=== PATIENT | female | born 1970 | race Caucasian/White ===

== ENCOUNTER 2016-05-07 10:01 | Outpatient (CLI) | payer OTHER ==
[~2016-05-07] VITALS: Ht 165.1 cm; Wt 139.5 kg
[~2016-05-07 10:01] MED LIST: CHOL400T10 PO
[2016-05-07 10:12] VITALS: BP 147/68; PULSE 88; RESP 18; Ht 165.1 cm; Wt 139.5 kg
--- NOTE | 2016-05-07 17:18 | PN ---
Date/Time of Note Date/Time of Note DATE: 05/07/16 TIME: 17:07 Assessment/Plan Assessment/Plan Assessment/Plan [facility] Progress Note Date of Service: 05/07/16 Today's Impression & Plan: Overall doing well post op without major issues. Wound healing very well. Had a chance to discuss margin status and further management with [facility] and recommendation was for BRCA testing along with genetic counselling followed by re-resection to achieve negative margins if BRCA negative/low genetic risk vs. unilateral or bilateral mastectomy with reconstruction if BRCA is positive or high risk genetic profile. Important that BRCA testing and genetic counseling get done as soon as possible since this is a time sensitive issue. Explained to patient and answered all her questions. With above assessment, I've recommended the following for today: 1. BRCA testing with genetic counselling, to be done in the next 1-2 weeks 2. F/u with us after above Thank you again for your great care of this very pleasant patient and wonderful family. If there are any questions, please feel free to call me at [phone]. TOTAL VISIT TIME: 20 minutes of which more than half was spent in [id number] discussion with the patient, possibly including family, as well as coordination of care between multiple physicians and providers. Disclaimer: Inadvertent spelling or grammatical errors are likely due to EHR/ dictation software use and do not reflect on the overall quality of patient care. Updated Clinical Summary: The patient is a very pleasant 46-year-old lady with comorbid issues including BMI of 51.4, left knee pain, and a few surgical procedures including Bartholin cyst in 2008, umbilical hernia repair in 2006 and tubal ligation in 2006, who was found to have an area in her right breast at 5 or 6 o'clock position in the posterior right breast with calcifications which on image CT-guided needle biopsy unfortunately has come back as ductal carcinoma in situ. The patient also had an MRI of the breast on 02/14/2016 where an area of non-mass enhancement at 5:30 to 6:00 o'clock position of the right breast which corresponded to the biopsy area without enhancing mass or abnormal enhancement in the left breast and no evidence of axillary or internal mammary lymphadenopathy. Given that the patient's preoperative staging is that of stage 0 or Tis N0 M0, according to NCCN guidelines, she could benefit from lumpectomy without lymph nodes surgery plus whole breast radiation therapy. As discussed by her oncologist, the patient can also benefit from risk reduction therapy with consideration for endocrine therapy for 5 years since the patient's tumor appears to be a hormone receptor positive. S/p right breast lumpectomy with assistance of wire localization on 03/18/16 with final path: Breast, right, lumpectomy: -- Ductal carcinoma in situ, solid, with comedonecrosis, high nuclear grade. -- The DCIS involves the anterior resection margin. -- The remaining resection margins are more than 1.0 cm clear. -- No invasive carcinoma is identified. SURGICAL PATHOLOGY CANCER CASE SUMMARY: PROCEDURE: Excision with wire-guided localization. SPECIMEN LATERALITY: Right. TUMOR SITE: Not specified. SIZE OF DCIS: 1.8 x 1.3 x 1.0 cm. Number of blocks with DCIS: 6. Number of blocks examined: 29. HISTOLOGIC TYPE: Ductal carcinoma in situ. Architectural pattern: Solid. Nuclear grade: Grade 3. Necrosis: Present, central. MARGINS: DCIS: The anterior margin is positive for DCIS with an extent of 5.0 mm. The remaining resection margins are more than 1.0 cm clear. PATHOLOGIC STAGING (pTNM): pTis. PROGNOSTIC MARKERS: Performed in the previous biopsy by [facility] ( [id number]; 12/04/2015). -- ER: Positive, strong, greater than 90%. -- RI: Positive, strong, 90%. Comorbidity/PMHx List: 1. Right breast calcification area consistent with DCIS after image-guided needle biopsy 2. BMI of 51.4. 3. Left knee pain. 4. Significant weight gain since after her children in 1995. 5. Bartholin's cyst in the vaginal labia 2008. 6. Umbilical hernia repair 2006. 7. Tubal ligation in 2006. Subjective: No major events or complaints; no major pain; no n/v/d; no sob or cp; + flatus; + BM and normal; + activity Objective: Vitals: See below Exam: GENERAL: On exam, the patient was sitting in a chair and appeared to be comfortable and in no acute distress. RIGHT BREAST: Incision is clean, dry and intact without any evidence of erythema , edema, discharge, or hernia. ABDOMEN: Soft, nontender and nondistended. There are no peritoneal signs or guarding. SKIN: Skin appears to be pink and feels warm to touch. NEUROLOGIC: Patient is awake, alert, and follows commands appropriately. Exam/Review of Systems Vital Signs Vitals Vital Signs Date Time Temp Pulse Resp B/P Pulse Ox O2 Delivery O2 Flow Rate FiO2 05/07/16 10:12 97.7 88 18 147/68 96 Room Air LUCY BOOKER M.D. May 07, 2016 17:18
== END 2016-05-07 16:44 | disposition home or self-care (01) ==
LOC: HPC 10:01
PROVIDERS: ATTEND Transplant Surgery
DX: D05.90 Unspecified type of carcinoma in situ of unspecified breast (principal); O00.10 Tubal pregnancy without intrauterine pregnancy; R59.1 Generalized enlarged lymph nodes
CPT/HCPCS: G0463

== ENCOUNTER 2016-06-25 14:37 | Outpatient (CLI) | payer OTHER ==
[~2016-06-25] VITALS: Ht 165.1 cm; Wt 144.1 kg
[2016-06-25 14:52] VITALS: Ht 165.1 cm; Wt 144.1 kg
[2016-06-25 14:53] VITALS: BP 142/78; PULSE 91; RESP 18
--- NOTE | 2016-06-25 16:33 | PN ---
Date/Time of Note Date/Time of Note DATE: 06/25/16 TIME: 16:15 Assessment/Plan Assessment/Plan Assessment/Plan [facility] Progress Note Date of Service: 06/25/16 Today's Impression & Plan: Overall doing well post op without major issues. BRCA testing done and wild- type (negative for mutation); discussed implications; recommended re-resection to achieve negative margins +/- plastics involvement in conjunction with whole breast radiation therapy and hormonal therapy post op; counseled patient against bilateral mastectomy, but will ask our plastics colleagues to also comment and willing to consider altering the plans if cosmetic results would be better with mastectomy due to breast size issues. Explained to patient and answered all her questions. With above assessment, I've recommended the following for today: 1. Schedule patient for re-resection of area of previous right breast lumpectomy 2. Plastic surgery consultation 3. Post operative whole breast radiation therapy as well as hormonal therapy Thank you again for your great care of this very pleasant patient and wonderful family. If there are any questions, please feel free to call me at [phone]. TOTAL VISIT TIME: 20 minutes of which more than half was spent in [id number] discussion with the patient, possibly including family, as well as coordination of care between multiple physicians and providers. Disclaimer: Inadvertent spelling or grammatical errors are likely due to EHR/ dictation software use and do not reflect on the overall quality of patient care. Updated Clinical Summary: The patient is a very pleasant 46-year-old lady with comorbid issues including BMI of 51.4, left knee pain, and a few surgical procedures including Bartholin cyst in 2008, umbilical hernia repair in 2006 and tubal ligation in 2006, who was found to have an area in her right breast at 5 or 6 o'clock position in the posterior right breast with calcifications which on image CT-guided needle biopsy unfortunately has come back as ductal carcinoma in situ. The patient also had an MRI of the breast on 02/14/2016 where an area of non-mass enhancement at 5:30 to 6:00 o'clock position of the right breast which corresponded to the biopsy area without enhancing mass or abnormal enhancement in the left breast and no evidence of axillary or internal mammary lymphadenopathy. Given that the patient's preoperative staging is that of stage 0 or Tis N0 M0, according to NCCN guidelines, she could benefit from lumpectomy without lymph nodes surgery plus whole breast radiation therapy. As discussed by her oncologist, the patient can also benefit from risk reduction therapy with consideration for endocrine therapy for 5 years since the patient's tumor appears to be a hormone receptor positive. S/p right breast lumpectomy with assistance of wire localization on 03/18/16 with final path: Breast, right, lumpectomy: -- Ductal carcinoma in situ, solid, with comedonecrosis, high nuclear grade. -- The DCIS involves the anterior resection margin. -- The remaining resection margins are more than 1.0 cm clear. -- No invasive carcinoma is identified. SURGICAL PATHOLOGY CANCER CASE SUMMARY: PROCEDURE: Excision with wire-guided localization. SPECIMEN LATERALITY: Right. TUMOR SITE: Not specified. SIZE OF DCIS: 1.8 x 1.3 x 1.0 cm. Number of blocks with DCIS: 6. Number of blocks examined: 29. HISTOLOGIC TYPE: Ductal carcinoma in situ. Architectural pattern: Solid. Nuclear grade: Grade 3. Necrosis: Present, central. MARGINS: DCIS: The anterior margin is positive for DCIS with an extent of 5.0 mm. The remaining resection margins are more than 1.0 cm clear. PATHOLOGIC STAGING (pTNM): pTis. PROGNOSTIC MARKERS: Performed in the previous biopsy by [facility] ( [id number]; 12/04/2015). -- ER: Positive, strong, greater than 90%. -- IA: Positive, strong, 90%. Comorbidity/PMHx List: 1. Right breast calcification area consistent with DCIS after image-guided needle biopsy 2. BMI of 51.4. 3. Left knee pain. 4. Significant weight gain since after her children in 1995. 5. Bartholin's cyst in the vaginal labia 2008. 6. Umbilical hernia repair 2006. 7. Tubal ligation in 2006. Subjective: No major events or complaints; no major pain; no n/v/d; no sob or cp; + flatus; + BM and normal; + activity Objective: Vitals: See below Exam: GENERAL: On exam, the patient was sitting in a chair and appeared to be comfortable and in no acute distress. RIGHT BREAST: Incision is clean, dry and intact without any evidence of erythema , edema, discharge, or hernia. ABDOMEN: Soft, nontender and nondistended. There are no peritoneal signs or guarding. SKIN: Skin appears to be pink and feels warm to touch. NEUROLOGIC: Patient is awake, alert, and follows commands appropriately. Exam/Review of Systems Vital Signs Vitals Vital Signs Date Time Temp Pulse Resp B/P Pulse Ox O2 Delivery O2 Flow Rate FiO2 06/25/16 14:53 98.1 91 18 142/78 96 Room Air LUCY BOOKER M.D. Jun 25, 2016 16:32
== END 2016-06-25 16:27 | disposition home or self-care (01) ==
LOC: HPC 14:37
PROVIDERS: ATTEND Transplant Surgery
DX: C50.911 Malignant neoplasm of unspecified site of right female breast (principal); M25.562 Pain in left knee
CPT/HCPCS: G0463

== ENCOUNTER 2016-07-28 15:39 | Outpatient (CLI) | payer OTHER ==
[~2016-07-28] VITALS: Ht 165.1 cm; Wt 146.4 kg
[2016-07-28 15:41] VITALS: BP 136/64; PULSE 88; RESP 18; Ht 165.1 cm; Wt 146.4 kg
--- NOTE | 2016-07-28 16:20 | PN ---
Date/Time of Note Date/Time of Note DATE: 07/28/16 TIME: 16:09 Assessment/Plan Assessment/Plan Assessment/Plan [facility] Progress Note Date of Service: 06/27/16 Today's Impression & Plan: Stable. Saw Dr. Sequeira (much appreciate input and care) and discussed upcoming re-resection to achieve negative margins with reconstruction in conjunction with whole breast radiation therapy and hormonal therapy post op. Explained to patient and answered all her questions. With above assessment, I've recommended the following for today: 1. On schedule for re-resection of area of previous right breast lumpectomy with reconstruction 2. Post operative whole breast radiation therapy as well as hormonal therapy Thank you again for your great care of this very pleasant patient and wonderful family. If there are any questions, please feel free to call me at [phone]. TOTAL VISIT TIME: 20 minutes of which more than half was spent in [id number] discussion with the patient, possibly including family, as well as coordination of care between multiple physicians and providers. Disclaimer: Inadvertent spelling or grammatical errors are likely due to EHR/ dictation software use and do not reflect on the overall quality of patient care. Updated Clinical Summary: The patient is a very pleasant 46-year-old lady with comorbid issues including BMI of 51.4, left knee pain, and a few surgical procedures including Bartholin cyst in 2008, umbilical hernia repair in 2006 and tubal ligation in 2006, who was found to have an area in her right breast at 5 or 6 o'clock position in the posterior right breast with calcifications which on image CT-guided needle biopsy unfortunately has come back as ductal carcinoma in situ. The patient also had an MRI of the breast on 02/14/2016 where an area of non-mass enhancement at 5:30 to 6:00 o'clock position of the right breast which corresponded to the biopsy area without enhancing mass or abnormal enhancement in the left breast and no evidence of axillary or internal mammary lymphadenopathy. Given that the patient's preoperative staging is that of stage 0 or Tis N0 M0, according to NCCN guidelines, she could benefit from lumpectomy without lymph nodes surgery plus whole breast radiation therapy. As discussed by her oncologist, the patient can also benefit from risk reduction therapy with consideration for endocrine therapy for 5 years since the patient's tumor appears to be a hormone receptor positive. S/p right breast lumpectomy with assistance of wire localization on 03/18/16 with final path: Breast, right, lumpectomy: -- Ductal carcinoma in situ, solid, with comedonecrosis, high nuclear grade. -- The DCIS involves the anterior resection margin. -- The remaining resection margins are more than 1.0 cm clear. -- No invasive carcinoma is identified. SURGICAL PATHOLOGY CANCER CASE SUMMARY: PROCEDURE: Excision with wire-guided localization. SPECIMEN LATERALITY: Right. TUMOR SITE: Not specified. SIZE OF DCIS: 1.8 x 1.3 x 1.0 cm. Number of blocks with DCIS: 6. Number of blocks examined: 29. HISTOLOGIC TYPE: Ductal carcinoma in situ. Architectural pattern: Solid. Nuclear grade: Grade 3. Necrosis: Present, central. MARGINS: DCIS: The anterior margin is positive for DCIS with an extent of 5.0 mm. The remaining resection margins are more than 1.0 cm clear. PATHOLOGIC STAGING (pTNM): pTis. PROGNOSTIC MARKERS: Performed in the previous biopsy by [facility] ( [id number]; 12/04/2015). -- ER: Positive, strong, greater than 90%. -- NC: Positive, strong, 90%. Comorbidity/PMHx List: 1. Right breast calcification area consistent with DCIS after image-guided needle biopsy 2. BMI of 51.4. 3. Left knee pain. 4. Significant weight gain since after her children in 1995. 5. Bartholin's cyst in the vaginal labia 2008. 6. Umbilical hernia repair 2006. 7. Tubal ligation in 2006. Subjective: No major events or complaints; no major pain; no n/v/d; no sob or cp; + flatus; + BM and normal; + activity Objective: Vitals: See below Exam: GENERAL: On exam, the patient was sitting in a chair and appeared to be comfortable and in no acute distress. RIGHT BREAST: Incision is clean, dry and intact without any evidence of erythema , edema, discharge, or hernia. ABDOMEN: Soft, nontender and nondistended. There are no peritoneal signs or guarding. SKIN: Skin appears to be pink and feels warm to touch. NEUROLOGIC: Patient is awake, alert, and follows commands appropriately. Exam/Review of Systems Vital Signs Vitals Vital Signs Date Time Temp Pulse Resp B/P Pulse Ox O2 Delivery O2 Flow Rate FiO2 07/28/16 15:41 98.1 88 18 136/64 96 Room Air LUCY BOOKER M.D. Jul 28, 2016 16:20
== END 2016-07-28 17:10 | disposition home or self-care (01) ==
LOC: HPC 15:39
PROVIDERS: ATTEND Transplant Surgery
DX: D05.11 Intraductal carcinoma in situ of right breast (principal); M25.562 Pain in left knee
CPT/HCPCS: G0463

== ENCOUNTER 2016-08-12 10:00 | Day surgery (SDC) | payer OTHER ==
[2016-08-12] VITALS (10 sets, daily range): BP systolic 111–142; BP diastolic 60–86; PULSE 80–95; RESP 12–18; Ht 165.1 cm; Wt 143.0 kg
[~2016-08-12] VITALS: Ht 165.1 cm; Wt 143.0 kg
[~2016-08-12 10:00] MED LIST changes: +CEFAZOLIN 1 GM INJ ONE; +CEFAZOLIN 2 GM/50 ML (PMX) 50 ML IVPB SCH; +D5W-0.45 NACL + KCL 20 MEQ 1,000 ML IV SCH; +SUCCINYLCHOLINE CHLORIDE 100 MG/5 ML SYG IV ONE
[2016-08-12] MEDS ORDERED: LIDOCAINE 2% (SDV) 5 ML INJ ONE (10:43)
[2016-08-12] MEDS ORDERED: ROCURONIUM 50 MG INJ ONE (10:43)
[2016-08-12] MEDS ORDERED: NEOSTIGMINE 3 MG/3 ML SYRINGE ONE (10:43)
[2016-08-12] MEDS ORDERED: PROPOFOL 20 ML ONE (10:43)
[2016-08-12] MEDS ORDERED: GLYCOPYRROLATE 0.4 MG INJ ONE (10:43)
[2016-08-12] MEDS ORDERED: MIDAZOLAM 1 MG/ML 2 ML INJ ONE (10:44)
[2016-08-12] MEDS ORDERED: FENTAnyl 50 MCG/ML VIAL ONE (10:45)
[2016-08-12] MEDS ORDERED: DEXAMETHASONE 4 MG/ML 1 ML INJ ONE (11:00)
[2016-08-12] MEDS ORDERED: ONDANSETRON 4 MG INJ ONE (11:00)
[2016-08-12] MEDS ORDERED: LABETALOL HCL 20MG INJ ONE (11:17)
--- NOTE | 2016-08-12 12:02 | HPN ---
Date/Time of Note Date/Time of Note DATE: 08/12/16 TIME: 12:02 Interval H&P Admission Note Pt. seen H&P reviewed: No system changes Pt. seen H&P reviewed. No system changes (I attest that I have seen and examined the patient and reviewed the operation in detail, as well as its risks , benefits and alternatives of the operation). I attest that I have seen and examined the patient and reviewed in detail the operation, and its associated risks, benefits and alternative. I have answered all the patient's questions to the best of my ability and the patient wishes to proceed. Please refer to rest of electronic medical record for additional updates. LUCY BOOKER M.D. Aug 12, 2016 12:02
[2016-08-12] MEDS ORDERED: EPINEPHrine 1 MG/ML 30 ML INJ ONE (12:17)
[2016-08-12] MEDS ORDERED: BUPIVACAINE 0.25%/EPI (SDV) 30 ML INJ ONE (12:17)
--- NOTE | 2016-08-12 12:20 | HPN ---
Date/Time of Note Date/Time of Note DATE: 08/12/16 TIME: 12:20 Interval H&P Admission Note Pt. seen H&P reviewed: No system changes HERIBERTO ESPINOSA MD Aug 12, 2016 12:20
[2016-08-12] MEDS ORDERED: morphine 2 MG INJ IV PRN (12:30)
[2016-08-12] MEDS ORDERED: BUPIVACAINE LIPOSOME/PF 266 MG/20 ML VIAL INFIL SCH (12:30)
[2016-08-12] MEDS ORDERED: HYDROCODONE/APAP (5/325) TAB PO PRN (12:30)
[2016-08-12] MEDS ORDERED: ONDANSETRON 4 MG INJ IV PRN (12:30)
[2016-08-12] MEDS ORDERED: OXYCODONE/ACETAMINOPHEN (5/325) TAB PO PRN (12:30)
[2016-08-12] MEDS ORDERED: hydrALAzine 20 MG INJ ONE (13:13)
--- NOTE | 2016-08-12 14:02 | OPR ---
Date/Time of Note Date/Time of Note DATE: 08/12/16 TIME: 13:46 Operative Report Operative\Procedure Findings [facility] INPATIENT OPERATIVE NOTE PLACE OF SERVICE: [facility] DATE OF SURGERY: 08/13/2015 PREOPERATIVE DIAGNOSIS: 1. Right breast calcification area consistent with DCIS after image-guided needle biopsy. S/p right breast lumpectomy with assistance of wire localization 03/18/16. Positive anterior margins on final pathology. 2. BMI of 51.4. 3. Left knee pain. 4. Significant weight gain since after her children in 1995. 5. Bartholin's cyst in the vaginal labia 2008. 6. Umbilical hernia repair 2006. 7. Tubal ligation in 2006. POSTOPERATIVE DIAGNOSIS: 1. Right breast calcification area consistent with DCIS after image-guided needle biopsy. S/p right breast lumpectomy with assistance of wire localization 03/18/16. Positive anterior margins on final pathology. 2. BMI of 51.4. 3. Left knee pain. 4. Significant weight gain since after her children in 1995. 5. Bartholin's cyst in the vaginal labia 2008. 6. Umbilical hernia repair 2006. 7. Tubal ligation in 2006. OPERATION: 1. Right breast re-resection of previous lumpectomy site (partial mastectomy) with removal of 23 x 9 cm block of tissue onto the anterior fascia. SURGEON: Lucy Rose M.D. TRAFFIC II MANAGER: Madhavi Sequeira MD ANESTHESIA: General endotracheal tube anesthesia ANESTHESIOLOGIST: Livan Lanier M.D. BRIEF SUMMARY: An otherwise uncomplicated right breast re-resection of previous lumpectomy site (partial mastectomy) with removal of 23x9 cm block of tissue onto the anterior fascia was performed along with removal of extra tissue from anterior fascia (most posterior aspect of previous resection site). Updated Clinical Summary: The patient is a very pleasant 46-year-old lady with comorbid issues including BMI of 51.4, left knee pain, and a few surgical procedures including Bartholin cyst in 2008, umbilical hernia repair in 2006 and tubal ligation in 2006, who was found to have an area in her right breast at 5 or 6 o'clock position in the posterior right breast with calcifications which on image CT-guided needle biopsy unfortunately has come back as ductal carcinoma in situ. The patient also had an MRI of the breast on 02/14/2016 where an area of non-mass enhancement at 5:30 to 6:00 o'clock position of the right breast which corresponded to the biopsy area without enhancing mass or abnormal enhancement in the left breast and no evidence of axillary or internal mammary lymphadenopathy. Given that the patient's preoperative staging is that of stage 0 or Tis N0 M0, according to NCCN guidelines, she could benefit from lumpectomy without lymph nodes surgery plus whole breast radiation therapy. As discussed by her oncologist, the patient can also benefit from risk reduction therapy with consideration for endocrine therapy for 5 years since the patient's tumor appears to be a hormone receptor positive. S/p right breast lumpectomy with assistance of wire localization on 03/18/16 with final path: Breast, right, lumpectomy: -- Ductal carcinoma in situ, solid, with comedonecrosis, high nuclear grade. -- The DCIS involves the anterior resection margin. -- The remaining resection margins are more than 1.0 cm clear. -- No invasive carcinoma is identified. SURGICAL PATHOLOGY CANCER CASE SUMMARY: PROCEDURE: Excision with wire-guided localization. SPECIMEN LATERALITY: Right. TUMOR SITE: Not specified. SIZE OF DCIS: 1.8 x 1.3 x 1.0 cm. Number of blocks with DCIS: 6. Number of blocks examined: 29. HISTOLOGIC TYPE: Ductal carcinoma in situ. Architectural pattern: Solid. Nuclear grade: Grade 3. Necrosis: Present, central. MARGINS: DCIS: The anterior margin is positive for DCIS with an extent of 5.0 mm. The remaining resection margins are more than 1.0 cm clear. PATHOLOGIC STAGING (pTNM): pTis. PROGNOSTIC MARKERS: Performed in the previous biopsy by [employer] ( [id number]; 12/04/2015). -- ER: Positive, strong, greater than 90%. -- NE: Positive, strong, 90%. Comorbidity/PMHx List: 1. Right breast calcification area consistent with DCIS after image-guided needle biopsy 2. BMI of 51.4. 3. Left knee pain. 4. Significant weight gain since after her children in 1995. 5. Bartholin's cyst in the vaginal labia 2008. 6. Umbilical hernia repair 2006. 7. Tubal ligation in 2006. BRIEF HISTORY: The patient is a very pleasant 46-year-old lady with comorbid issues including BMI of 51.4, left knee pain, and a few surgical procedures including Bartholin cyst in 2008, umbilical hernia repair in 2006 and tubal ligation in 2006, who was found to have an area in her right breast at 5 or 6 o' clock position in the posterior right breast with calcifications which on image CT-guided needle biopsy unfortunately has come back as ductal carcinoma in situ. The patient also had an MRI of the breast on 02/14/2016 where an area of non-mass enhancement at 5:30 to 6:00 o'clock position of the right breast which corresponded to the biopsy area without enhancing mass or abnormal enhancement in the left breast and no evidence of axillary or internal mammary lymphadenopathy. Given that the patient's preoperative staging is that of stage 0 or Tis N0 M0, according to NCCN guidelines, she could benefit from lumpectomy without lymph nodes surgery plus whole breast radiation therapy. As discussed by her oncologist, the patient can also benefit from risk reduction therapy with consideration for endocrine therapy for 5 years since the patient's tumor appears to be a hormone receptor positive. S/p right breast lumpectomy with assistance of wire localization on 03/18/16 with final path showed positive anterior resection margin with DCIS. After multidisciplinary tumor board recommendation, I advised patient and obtained her consent for re-resection of the area, in conjunction with assistance for cosmetic closure of the area with Dr. Madhavi Sequeira. For a detailed report of my consultation with patient and family , please refer to my separate consultation note. STATEMENT OF THE INFORMED CONSENT: The patient and family appeared to understand the risks of the operation to include, but not be limited to risk of postoperative pain and scar tissue, possible infection or bleeding requiring other interventions such as opening the wound, placement of drainage catheters, or other operative interventions; possible injury to surrounding to structures including chest wall, muscle, nerves, vessels, and other structures including the chest wall cavity and the lungs and possibly other solid organs requiring other interventions or procedures; possible leakage of bowel from anastomotic sites or suture lines causing significant increase in morbidity and mortality and requiring multiple interventions including but not limited to, placement of drainage catheters, imaging studies, as well as operative interventions; possible other source of sepsis such as urinary tract infections or pneumonias, or other sources of potentially life threatening problems such as deep venous thrombus formation causing pulmonary embolism, myocardial arrhythmias and infarctions, and even . We also briefly discussed the potential need to receive blood products and their potential complications of blood transfusion reactions, transmission of infections, or other complications. After careful consideration of all their options, the patient and family appeared to understand and wished to proceed with surgery. DESCRIPTION OF PROCEDURE: After obtaining informed consent, the patient was brought into the operating room and was placed in a normal supine position, where successful general anesthesia with the use of an LMA was performed. Intravenous access was already in place and intravenous antimicrobials had been appropriately chosen and dosed prior to the operation. The patient's right chest wall skin was prepped and draped in the usual sterile fashion. Note that Dr. Sequeira had already marked the resection margins that contained the nipple areolar complex with wide margin partial mastectomy intent. We then called a surgical time-out where the patient's identification, date of , nature of the operation, allergies, presence of intravenous antimicrobials, presence of needed equipment, and any other concerns were reviewed and agreed upon by all members of the operating room team. We then started the operation by placing an incision along the previously marked lines by Dr. Sequeira, encompassing a 23 cm x 9 cm (L x W) including the nipple areolar complex in the middle of the specimen and wide margin resection for the specimen. We then used cautery to core out the partial mastectomy breast tissue using cautery. I took the dissection down to the chest wall fascia and removed the entire specimen en-block. We marked the specimen with long suture marking the lateral aspect and the short suture marking the superior aspect and send this as the main specimen. I then removed a smaller area of tissue on the fascia that contained two small clips from the previous lumpectomy site. I sent this as separate specimen to adrian the new deep margin for permanent sections. We then made sure there was adequate hemostasis prior to me leaving the operating room. For details of the cosmetic closure, please refer to Dr. Sequeira' s separate operative report. At the time I left the operating room, the instruments had not yet been counted. The patient tolerated the procedure while I was in the room without any reported complications. ESTIMATED BLOOD LOSS: 10 mL during my portion of the operation. BLOOD OR BLOOD PRODUCT TRANSFUSIONS: None to my knowledge. SPECIMENS: 1. Right breast re-resection of previous lumpectomy in the form of partial mastectomy 2. Removal of anterior fascia (previous posterior margin of the lumpectomy done in Feb 2016) COMPLICATIONS: None. DISPOSITION: Recovery area. Disclaimer: Inadvertent spelling and grammatical errors are likely due to EHR/ dictation software use and do not reflect on the quality of delivered patient care. Also, please note that the electronic time recorded on this node does not necessarily reflect the actual time of the visit. LUCY ROSE M.D. Aug 12, 2016 14:01
--- NOTE | 2016-08-12 14:54 | OPR ---
Date/Time of Note Date/Time of Note DATE: 08/12/16 TIME: 14:50 Operative Report Free Text/Dictation Plastic Surgery Operative Report Preoperative diagnosis: Right breast cancer Postoperative diagnosis: Same Procedure: Right breast reconstruction Surgeon: Hua Sebastian.:Rose Anesthesia: gen EBL: min IV fluids: per flow sheet Findings:n/a Complications: none Dispo: home Indications for procedure: 46-year-old female presents today for right breast reconstruction in the right breast partial mastectomy. The risks, benefits, alternatives of performing this procedure were discussed with the patient including the risks of bleeding, infection, wound healing problems, asymmetry, need for revision, the patient states that she understands these risks and would like to proceed with the procedure. All questions were answered, no guarantees were given with regards to the outcome of this procedure. She understands that the right breast will be smaller than the left breast. It will also be more elevated. This will change with radiation. A symmetry procedure on the left breast is possible in the future. Description of procedure: The patient was brought to the operating room at [facility] where general anesthesia was induced. Next, the patient was prepped and draped in usual sterile fashion. First, the partial mastectomy was performed by Dr. Rose. At the completion of this portion of the procedure, the breast was inspected. There was a 23 x 9 cm defect centrally. Therefore, right and left lateral pillars were elevated with the peak plasma blade. This created medial and lateral flaps. A separate superior flap was elevated. Next, the flaps were rotated to the midline. They came together without undue tension. Therefore there are anchored to each other with 2-0 Vicryl suture. Next, hemostasis was achieved with the electrocautery, and 30 cc of diluted Exparel solution were infiltrated throughout the breast. A #15 Marcelino drain was inserted through the right lateral breast via a stab incision. Next, the joined flaps were anchored to the inferior flap using 2-0 Vicryl suture. The skin was then closed with 3-0 Vicryl suture and 4-0 Monocryl suture. The patient tolerated procedure well, there were no complications, follow-up information and wound care instructions were given. HERIBERTO ESPINOSA MD Aug 12, 2016 14:54
== END 2016-08-12 16:50 | disposition home or self-care (01) ==
LOC: REC 10:00 → SDS 10:00 → UNDOADMIN 10:00 → EDSTATUS 12:00 → SDS 16:50 → UNDODISIN 16:50 → SDS 21:07
PROVIDERS: ATTEND Transplant Surgery
DX: N64.1 Fat necrosis of breast (principal); N60.31 Fibrosclerosis of right breast; Z85.3 Personal history of malignant neoplasm of breast; M25.562 Pain in left knee
CPT/HCPCS: 19301; 84703; 88307; C9290; J0330; J0360; J0690; J1100; J2250; J2270; J2405; J2710; J3010; J3480; Z7512; Z7610; J0171; J7999

== ENCOUNTER 2016-09-03 10:23 | Outpatient (CLI) | payer OTHER ==
[~2016-09-03] VITALS: Ht 165.1 cm; Wt 145.4 kg
[2016-09-03 10:27] VITALS: BP 130/70; PULSE 74; RESP 18; Ht 165.1 cm; Wt 145.4 kg
--- NOTE | 2016-09-03 10:30 | PN ---
Date/Time of Note Date/Time of Note DATE: 09/03/16 TIME: 10:29 Assessment/Plan Assessment/Plan Assessment/Plan [facility] Progress Note Date of Service: 09/03/16 Today's Impression & Plan: Stable and doing well without any sig post operative issues. No residual disease on the re-resection specimen. Saw Dr. Sequeira and Dr. Zaman (much appreciate input and care). Also Dr. Girard. Ok to continue with radiation and needed other therapies. Also very important to continue an aggressive course towards bariatrics care. No contraindication from my standpoint. Explained to patient and answered all her questions. With above assessment, I've recommended the following for today: 1. F/u with rest of physician team as above 2. F/u with us prn Thank you again for your great care of this very pleasant patient and wonderful family. If there are any questions, please feel free to call me at [phone]. TOTAL VISIT TIME: 20 minutes of which more than half was spent in [id number] discussion with the patient, possibly including family, as well as coordination of care between multiple physicians and providers. Disclaimer: Inadvertent spelling or grammatical errors are likely due to EHR/ dictation software use and do not reflect on the overall quality of patient care. Updated Clinical Summary: The patient is a very pleasant 46-year-old lady with comorbid issues including BMI of 51.4, left knee pain, and a few surgical procedures including Bartholin cyst in 2008, umbilical hernia repair in 2006 and tubal ligation in 2006, who was found to have an area in her right breast at 5 or 6 o'clock position in the posterior right breast with calcifications which on image CT-guided needle biopsy unfortunately has come back as ductal carcinoma in situ. The patient also had an MRI of the breast on 02/14/2016 where an area of non-mass enhancement at 5:30 to 6:00 o'clock position of the right breast which corresponded to the biopsy area without enhancing mass or abnormal enhancement in the left breast and no evidence of axillary or internal mammary lymphadenopathy. Given that the patient's preoperative staging is that of stage 0 or Tis N0 M0, according to NCCN guidelines, she could benefit from lumpectomy without lymph nodes surgery plus whole breast radiation therapy. As discussed by her oncologist, the patient can also benefit from risk reduction therapy with consideration for endocrine therapy for 5 years since the patient's tumor appears to be a hormone receptor positive. S/p right breast lumpectomy with assistance of wire localization on 03/18/16 with final path: Breast, right, lumpectomy: -- Ductal carcinoma in situ, solid, with comedonecrosis, high nuclear grade. -- The DCIS involves the anterior resection margin. -- The remaining resection margins are more than 1.0 cm clear. -- No invasive carcinoma is identified. SURGICAL PATHOLOGY CANCER CASE SUMMARY: PROCEDURE: Excision with wire-guided localization. SPECIMEN LATERALITY: Right. TUMOR SITE: Not specified. SIZE OF DCIS: 1.8 x 1.3 x 1.0 cm. Number of blocks with DCIS: 6. Number of blocks examined: 29. HISTOLOGIC TYPE: Ductal carcinoma in situ. Architectural pattern: Solid. Nuclear grade: Grade 3. Necrosis: Present, central. MARGINS: DCIS: The anterior margin is positive for DCIS with an extent of 5.0 mm. The remaining resection margins are more than 1.0 cm clear. PATHOLOGIC STAGING (pTNM): pTis. PROGNOSTIC MARKERS: Performed in the previous biopsy by [employer] ( [id number]; 12/04/2015). -- ER: Positive, strong, greater than 90%. -- IN: Positive, strong, 90%. S/p right breast re-resection of previous lumpectomy site (partial mastectomy) with removal of 23 x 9 cm block of tissue onto the anterior fascia 08/12/16 with negative final path. Comorbidity/PMHx List: 1. Right breast calcification area consistent with DCIS after image-guided needle biopsy 2. BMI of 51.4. 3. Left knee pain. 4. Significant weight gain since after her children in 1995. 5. Bartholin's cyst in the vaginal labia 2008. 6. Umbilical hernia repair 2006. 7. Tubal ligation in 2006. 8. S/p right breast re-resection of previous lumpectomy site (partial mastectomy) with removal of 23 x 9 cm block of tissue onto the anterior fascia with final path showing no residual disease Subjective: No major events or complaints; no major pain; no n/v/d; no sob or cp; + flatus; + BM and normal; + activity Objective: Vitals: See below Exam: GENERAL: On exam, the patient was sitting in a chair and appeared to be comfortable and in no acute distress. RIGHT BREAST: Incision is clean, dry and intact without any evidence of erythema , edema, discharge, or hernia. ABDOMEN: Soft, nontender and nondistended. There are no peritoneal signs or guarding. SKIN: Skin appears to be pink and feels warm to touch. NEUROLOGIC: Patient is awake, alert, and follows commands appropriately. LUCY BOOKER M.D. September 03, 2016 10:30
== END 2016-09-03 16:51 | disposition home or self-care (01) ==
LOC: HPC 10:23
PROVIDERS: ATTEND Transplant Surgery
DX: Z48.89 Encounter for other specified surgical aftercare (principal); D05.11 Intraductal carcinoma in situ of right breast
CPT/HCPCS: G0463

== ENCOUNTER → 2017-01-07 | Outpatient (CLI) | payer OTHER ==
[~2017-01-07] VITALS: Ht 165.1 cm; Wt 143.2 kg
[2017-01-07 15:26] VITALS: BP 123/62; PULSE 89; RESP 18; Ht 165.1 cm; Wt 143.2 kg
--- NOTE | 2017-01-07 17:08 | PN ---
Date/Time of Note Date/Time of Note DATE: 01/07/17 TIME: 16:45 Assessment/Plan Assessment/Plan Assessment/Plan [facility] Progress Note Date of Service: 01/07/17 Today's Impression & Plan: Stable and doing well. New area of tenderness and small nodule R breast outer 9' oclock position. Low likelihood of malignancy, but will need focused US exam. Explained to patient and answered all her questions. With above assessment, I've recommended the following for today: 1. Focused R breast US exam of area of tenderness 2. F/u with us after above Thank you again for your great care of this very pleasant patient and wonderful family. If there are any questions, please feel free to call me at [phone]. TOTAL VISIT TIME: 20 minutes of which more than half was spent in [id number] discussion with the patient, possibly including family, as well as coordination of care between multiple physicians and providers. Disclaimer: Inadvertent spelling or grammatical errors are likely due to EHR/ dictation software use and do not reflect on the overall quality of patient care. Updated Clinical Summary: The patient is a very pleasant 46-year-old lady with comorbid issues including BMI of 51.4, left knee pain, and a few surgical procedures including Bartholin cyst in 2008, umbilical hernia repair in 2006 and tubal ligation in 2006, who was found to have an area in her right breast at 5 or 6 o'clock position in the posterior right breast with calcifications which on image CT-guided needle biopsy unfortunately has come back as ductal carcinoma in situ. The patient also had an MRI of the breast on 02/14/2016 where an area of non-mass enhancement at 5:30 to 6:00 o'clock position of the right breast which corresponded to the biopsy area without enhancing mass or abnormal enhancement in the left breast and no evidence of axillary or internal mammary lymphadenopathy. Given that the patient's preoperative staging is that of stage 0 or Tis N0 M0, according to NCCN guidelines, she could benefit from lumpectomy without lymph nodes surgery plus whole breast radiation therapy. As discussed by her oncologist, the patient can also benefit from risk reduction therapy with consideration for endocrine therapy for 5 years since the patient's tumor appears to be a hormone receptor positive. S/p right breast lumpectomy with assistance of wire localization on 03/18/16 with final path: Breast, right, lumpectomy: -- Ductal carcinoma in situ, solid, with comedonecrosis, high nuclear grade. -- The DCIS involves the anterior resection margin. -- The remaining resection margins are more than 1.0 cm clear. -- No invasive carcinoma is identified. SURGICAL PATHOLOGY CANCER CASE SUMMARY: PROCEDURE: Excision with wire-guided localization. SPECIMEN LATERALITY: Right. TUMOR SITE: Not specified. SIZE OF DCIS: 1.8 x 1.3 x 1.0 cm. Number of blocks with DCIS: 6. Number of blocks examined: 29. HISTOLOGIC TYPE: Ductal carcinoma in situ. Architectural pattern: Solid. Nuclear grade: Grade 3. Necrosis: Present, central. MARGINS: DCIS: The anterior margin is positive for DCIS with an extent of 5.0 mm. The remaining resection margins are more than 1.0 cm clear. PATHOLOGIC STAGING (pTNM): pTis. PROGNOSTIC MARKERS: Performed in the previous biopsy by [employer] ( [id number]; 12/04/2015). -- ER: Positive, strong, greater than 90%. -- TN: Positive, strong, 90%. S/p right breast re-resection of previous lumpectomy site (partial mastectomy) with removal of 23 x 9 cm block of tissue onto the anterior fascia 08/12/16 with negative final path. Comorbidity/PMHx List: 1. Right breast calcification area consistent with DCIS after image-guided needle biopsy 2. BMI of 51.4. 3. Left knee pain. 4. Significant weight gain since after her children in 1995. 5. Bartholin's cyst in the vaginal labia 2008. 6. Umbilical hernia repair 2006. 7. Tubal ligation in 2006. 8. S/p right breast re-resection of previous lumpectomy site (partial mastectomy) with removal of 23 x 9 cm block of tissue onto the anterior fascia with final path showing no residual disease Subjective: No major events or complaints except for above complaint of a small nodule that is tender to palpation discovered after her B mammo and US done last month; no other major pain or complaints; no n/v/d; no sob or cp; + flatus; + BM and normal; + activity Objective: Vitals: See below Exam: GENERAL: On exam, the patient was sitting in a chair and appeared to be comfortable and in no acute distress. RIGHT BREAST: Incision is clean, dry and intact without any evidence of erythema , edema, discharge, or hernia. Small 1 cm area outer flank region 9'oclock position with tenderness. No erythema or fluctuance. ABDOMEN: Soft, nontender and nondistended. There are no peritoneal signs or guarding. SKIN: Skin appears to be pink and feels warm to touch. NEUROLOGIC: Patient is awake, alert, and follows commands appropriately. Exam/Review of Systems Vital Signs Vitals Vital Signs Date Time Temp Pulse Resp B/P Pulse Ox O2 Delivery O2 Flow Rate FiO2 01/07/17 15:26 98.4 89 18 123/62 98 Room Air LUCY BOOKER M.D. Jan 07, 2017 17:08
== END | disposition home or self-care (01) ==
LOC: HPC 15:26
PROVIDERS: ATTEND Transplant Surgery
DX: C50.911 Malignant neoplasm of unspecified site of right female breast (principal); M25.561 Pain in right knee; Z90.11 Acquired absence of right breast and nipple

== ENCOUNTER 2017-02-11 08:47 | Outpatient (CLI) | payer OTHER ==
[~2017-02-11] VITALS: Ht 165.1 cm; Wt 143.2 kg
[2017-02-11 08:55] VITALS: BP 124/57; PULSE 72; RESP 18; Ht 165.1 cm; Wt 143.2 kg
[2017-02-11] MEDS ORDERED: NOL20 PO (09:13)
--- NOTE | 2017-02-11 09:35 | PN ---
Date/Time of Note Date/Time of Note DATE: 02/11/17 TIME: 09:26 Assessment/Plan Assessment/Plan Assessment/Plan [facility] Progress Note Date of Service: 02/11/17 Today's Impression & Plan: Stable and doing well. BIRADS 2 US and image findings on the new area of tenderness and small nodule R breast outer 9'oclock position. No need for intervention at this time. Low likelihood of malignancy. Vaginal bleeding (? fibroids). Explained to patient and answered all her questions. With above assessment, I've recommended the following for today: 1. Back to routine surveillance post malignancy treatment 2. F/u with [employer] program director re vaginal bleeding (? fibroids); will need expedited referral due to hormonal therapy for breast cancer 3. Call immediately if any changes in breast, in particular, the area of tenderness in the right Thank you again for your great care of this very pleasant patient and wonderful family. If there are any questions, please feel free to call me at [phone]. Disclaimer: Inadvertent spelling or grammatical errors are likely due to EHR/ dictation software use and do not reflect on the overall quality of patient care. Updated Clinical Summary: The patient is a very pleasant 46-year-old lady with comorbid issues including BMI of 51.4, left knee pain, and a few surgical procedures including Bartholin cyst in 2008, umbilical hernia repair in 2006 and tubal ligation in 2006, who was found to have an area in her right breast at 5 or 6 o'clock position in the posterior right breast with calcifications which on image CT-guided needle biopsy unfortunately has come back as ductal carcinoma in situ. The patient also had an MRI of the breast on 02/14/2016 where an area of non-mass enhancement at 5:30 to 6:00 o'clock position of the right breast which corresponded to the biopsy area without enhancing mass or abnormal enhancement in the left breast and no evidence of axillary or internal mammary lymphadenopathy. Given that the patient's preoperative staging is that of stage 0 or Tis N0 M0, according to NCCN guidelines, she could benefit from lumpectomy without lymph nodes surgery plus whole breast radiation therapy. As discussed by her oncologist, the patient can also benefit from risk reduction therapy with consideration for endocrine therapy for 5 years since the patient's tumor appears to be a hormone receptor positive. S/p right breast lumpectomy with assistance of wire localization on 03/18/16 with final path: Breast, right, lumpectomy: -- Ductal carcinoma in situ, solid, with comedonecrosis, high nuclear grade. -- The DCIS involves the anterior resection margin. -- The remaining resection margins are more than 1.0 cm clear. -- No invasive carcinoma is identified. SURGICAL PATHOLOGY CANCER CASE SUMMARY: PROCEDURE: Excision with wire-guided localization. SPECIMEN LATERALITY: Right. TUMOR SITE: Not specified. SIZE OF DCIS: 1.8 x 1.3 x 1.0 cm. Number of blocks with DCIS: 6. Number of blocks examined: 29. HISTOLOGIC TYPE: Ductal carcinoma in situ. Architectural pattern: Solid. Nuclear grade: Grade 3. Necrosis: Present, central. MARGINS: DCIS: The anterior margin is positive for DCIS with an extent of 5.0 mm. The remaining resection margins are more than 1.0 cm clear. PATHOLOGIC STAGING (pTNM): pTis. PROGNOSTIC MARKERS: Performed in the previous biopsy by [facility] ( [id number]; 12/04/2015). -- ER: Positive, strong, greater than 90%. -- OK: Positive, strong, 90%. S/p right breast re-resection of previous lumpectomy site (partial mastectomy) with removal of 23 x 9 cm block of tissue onto the anterior fascia 08/12/16 with negative final path. BIRADS 2 US and image findings on the new area of tenderness and small nodule R breast outer 9'oclock position 01/30/17. Vaginal bleeding noted Jan 2017. Expedited referral to cable television program director recommended. Comorbidity/PMHx List: 1. Right breast calcification area consistent with DCIS after image-guided needle biopsy 2. BMI of 51.4. 3. Left knee pain. 4. Significant weight gain since after her children in 1995. 5. Bartholin's cyst in the vaginal labia 2008. 6. Umbilical hernia repair 2006. 7. Tubal ligation in 2006. 8. S/p right breast re-resection of previous lumpectomy site (partial mastectomy) with removal of 23 x 9 cm block of tissue onto the anterior fascia with final path showing no residual disease Subjective: No major events or complaints. Same small nodule that is tender to palpation with less tenderness; no other major pain or complaints; no n/v/d; no sob or cp ; + flatus; + BM and normal; + activity. Vaginal bleeding reported. Objective: Vitals: See below Exam: GENERAL: On exam, the patient was sitting in a chair and appeared to be comfortable and in no acute distress. RIGHT BREAST: Incision is clean, dry and intact without any evidence of erythema , edema, discharge, or hernia. Small 1 cm area outer flank region 9'oclock position with minor tenderness. No erythema or fluctuance. ABDOMEN: Soft, nontender and nondistended. There are no peritoneal signs or guarding. SKIN: Skin appears to be pink and feels warm to touch. NEUROLOGIC: Patient is awake, alert, and follows commands appropriately. Exam/Review of Systems Vital Signs Vitals Vital Signs Date Time Temp Pulse Resp B/P Pulse Ox O2 Delivery O2 Flow Rate FiO2 02/11/17 08:55 98.0 72 18 124/57 97 Room Air LUCY BOOKER M.D. Feb 11, 2017 09:35
== END 2017-02-11 15:51 | disposition home or self-care (01) ==
LOC: HPC 08:47
PROVIDERS: ATTEND Transplant Surgery
DX: C50.911 Malignant neoplasm of unspecified site of right female breast (principal); M25.562 Pain in left knee; K42.9 Umbilical hernia without obstruction or gangrene; N93.9 Abnormal uterine and vaginal bleeding, unspecified
CPT/HCPCS: G0463

== ENCOUNTER 2017-05-12 07:28 | Day surgery (SDC) | END 2017-05-12 14:00 | disposition home or self-care (01) ==